=== PATIENT | female | born 1960 | race African-American/Black ===

== ENCOUNTER 2020-03-30 14:14 | Emergency (ER) | payer OTHER, SELFPAY ==
[2020-03-30 15:00] VITALS: BP 169/99; PULSE 129; RESP 16; TEMP 36.5; O2SAT 99
--- NOTE | 2020-03-30 15:02 | ED.FEMALEGU ---
HPI - Female Genitourinary General Chief complaint: Urogenital-Female Stated complaint: UTI Source: patient Mode of arrival: ambulatory Limitations: no limitations History of Present Illness HPI Narrative: Patient is a 59-year-old female who presents complaining of urinary frequency, urgency and dysuria x2 to 3 days. She reports taking Azo aajb-hmm-dfyived. She reports a history of UTIs in the past. She denies other complaints at this time. MD elicited complaint: dysuria Related Data Home Medications Medication Instructions Recorded Confirmed lisinopril-hydrochlorothiazide tablet 03/30/20 Allergies Allergy/AdvReac Type Severity Reaction Status Date / Time No Known Allergies Allergy Unknown Unverified 11/05/16 19:02 Review of Systems Review of Systems: Narrative: CONSTITUTIONAL: Denies fever, chills, or sweats. EYES: Denies visual changes, redness, or discharge. ENT: Denies rhinorrhea, congestion, sore throat, or otalgia. CARDIOVASCULAR: Denies chest pain, palpitations, or edema. RESPIRATORY: Denies cough or dyspnea. GASTROINTESTINAL: Denies abdominal pain, nausea, vomiting, or diarrhea. GENITOURINARY: Reports dysuria, frequency and urgency MUSCULOSKELETAL: Denies back pain, joint pain, or myalgia. NEUROLOGIC: Denies headache, numbness, dizziness, or weakness. PSYCHIATRIC: Denies anxiety or depression. PMFSH Past Medical History Medical History (Updated 03/30/20 @ 15:08 by GOPI Salas) Asthma HTN (hypertension) Postmenopausal Surgical History Surgical History (Updated 03/30/20 @ 15:04 by GOPI Salsa) No significant past surgical history Family History Family History (Updated 03/30/20 @ 15:04 by GOPI Salas) Other Hypertension Social History Social History (Updated 03/30/20 @ 15:05 by GOPI Salas) Smoking status: Never smoker Alcohol intake: never Substance use: never Exam Narrative: Exam Narrative: GENERAL: Well-appearing, well-nourished, and in no acute distress. HEAD: Normocephalic, atraumatic. EYES: No redness or drainage. ENT: Mucous membranes pink and moist. CHEST: No respiratory distress. EXTREMITIES: Normal range of motion. SKIN: Warm, dry, no rash. NEURO: No focal deficits. Alert and oriented x3. Gait steady. PSYCH: Normal affect. No signs of depression or anxiety. Course Vital Signs Vital signs: Vital Signs Temperature 36.5 C 03/30/20 15:00 Pulse Rate 129 H 03/30/20 15:00 Respiratory Rate 16 03/30/20 15:00 Blood Pressure 169/99 H 03/30/20 15:00 Pulse Oximetry 99 03/30/20 15:00 Temperature 36.5 C 03/30/20 15:00 Pulse Rate 129 H 03/30/20 15:00 Respiratory Rate 16 03/30/20 15:00 Blood Pressure 169/99 H 03/30/20 15:00 Pulse Oximetry 99 03/30/20 15:00 Reviewed. Patient has been instructed to follow-up with her PCP regarding her blood pressure. Patient is aware that her blood pressure and heart rate are elevated, reports white coat hypertension and anxiety MDM - Female Genitourinary MDM Narrative Medical decision making narrative: Patient is symptomatic and will be treated for UTI at this time. Discussed with patient the need for follow-up with PCP in 3 to 5 days. Patient agrees with plan of care. Patient is stable for discharge home with outpatient follow-up as discussed. Differential Diagnosis Differential diagnosis: Likely urinary tract infection, cystitis and other (Pyelonephritis) Critical Care Time Critical Care Time Critical Care Time: No Discharge Plan Discharge Clinical Impression: Urinary tract infection Patient Disposition: Home, Self-Care Condition: Stable Instructions: Antibiotic Form, Urinary Tract Infection in Women (DC) Additional Instructions: Take antibiotics as directed. Increase your fluid intake. Follow-up with your PCP in 3 to 5 days for urine recheck. Prescriptions: New cephalexin 250 mg capsule 250 mg PO Q6H 5 Days Qty: 20 RF: 0
== END 2020-03-30 15:22 | disposition home or self-care (01) ==
PROVIDERS: Emergency Provider Nurse Practitioner; PCP Family Medicine
DX: N39.0 Urinary tract infection, site not specified (principal); J45.909 Unspecified asthma, uncomplicated; I10 Essential (primary) hypertension
CPT/HCPCS: 81003; 87086; 99203; G0463

== ENCOUNTER 2021-07-16 18:10 | Emergency (ER) | payer OTHER, SELFPAY ==
[2021-07-16 18:15] VITALS: BP 167/100; PULSE 130; RESP 16; TEMP 36.7; O2SAT 100
--- NOTE | 2021-07-16 18:26 | ED.FEMALEGU ---
HPI - Female Genitourinary General Chief complaint: Urogenital-Female Stated complaint: BURNING URINATION Time Seen by Provider: 07/16/21 18:27 Source: patient, RN notes reviewed and old records reviewed Mode of arrival: ambulatory Limitations: no limitations History of Present Illness HPI Narrative: 61-year-old female who presents to [facility] with complaints of burning with urination and urinary frequency since yesterday morning. Patient reports no visible blood in urine denies any fever, chills or sweats, denies any nausea vomiting or diarrhea. Patient has not taken any AZO for her symptoms, reports that she took a urine test from [employer] that indicated positive for UTI. Patient denies any vaginal discharge or any itching denies any concern for STD's. MD elicited complaint: dysuria Related Data Home Medications Medication Instructions Recorded Confirmed lisinopril-hydrochlorothiazide tablet 03/30/20 Allergies Allergy/AdvReac Type Severity Reaction Status Date / Time No Known Allergies Allergy Unknown Unverified 11/05/16 19:02 Review of Systems Review of Systems: CONSTITUTIONAL: Denies fever, chills, or sweats. EYES: Denies visual changes, redness, or discharge. ENT: Denies rhinorrhea, congestion, sore throat, or otalgia. CARDIOVASCULAR: Denies chest pain, palpitations, or edema. RESPIRATORY: Denies cough or dyspnea. GASTROINTESTINAL: Denies abdominal pain, nausea, vomiting, or diarrhea. GENITOURINARY: Positive for dysuria and urinary frequency, denies any visible hematuria. SKIN: Denies rash or itching. MUSCULOSKELETAL: Denies back pain, joint pain, or myalgia. NEUROLOGIC: Denies headache, numbness, or weakness. PSYCHIATRIC: Denies anxiety or depression. All systems reviewed & are unremarkable except as noted in HPI and below [facility] Past Medical History Medical History Asthma HTN (hypertension) Postmenopausal Surgical History Surgical History No significant past surgical history Family History Family History Other Hypertension Social History Social History (Updated 07/16/21 @ 18:45 by Raquel Taylor NP) Smoking status: Never smoker Alcohol intake: never Substance use: never Living arrangements: with family Gender identity (if verbalized by the patient): Female Comments At time of signature, agree with nursing past medical, surgical, social and family history. There is no relevant family history pertinent to the presenting complaint Exam Narrative: GENERAL: Well-appearing, well-nourished, and in no acute distress. HEAD: Normocephalic, atraumatic. EYES: PERRLA and EOMI. ENT: Nares clear, no rhinorrhea or epistaxis. Mucous membranes moist.TM's normal with good light reflex, throat pink with no exudates or lesions or tonsil swelling NECK: Supple. no lymphadenopathy CHEST: Clear to auscultation. No respiratory distress.SAO2 100% on room air HEART: Regular rate and rhythm. No murmur heard. Normal peripheral pulses, no suprapubic tenderness, denies any CVA tenderness on examination ABDOMEN: Soft, nontender, nondistended, normal active bowel sounds. EXTREMITIES: Normal range of motion. No edema. SKIN: Warm, dry, no rash. NEURO: No focal deficits. Alert and oriented x3. Course Course Level of Care: Express Care Visit Vital Signs Vital signs: Vital Signs Temperature 36.7 C 07/16/21 18:15 Pulse Rate 130 H 07/16/21 18:15 Respiratory Rate 16 07/16/21 18:15 Blood Pressure 167/100 H 07/16/21 18:15 Pulse Oximetry 100 07/16/21 18:15 Temperature 36.7 C 07/16/21 18:15 Pulse Rate 130 H 07/16/21 18:15 Respiratory Rate 16 07/16/21 18:15 Blood Pressure 167/100 H 07/16/21 18:15 Pulse Oximetry 100 07/16/21 18:15 MDM - Female Genitourinary Differential Diagnosis Differential diagnosis: Likel
== END 2021-07-16 18:45 | disposition home or self-care (01) ==
PROVIDERS: Emergency Provider Registered Nurse; PCP Family Medicine
DX: N39.0 Urinary tract infection, site not specified (principal); J45.909 Unspecified asthma, uncomplicated; I10 Essential (primary) hypertension
CPT/HCPCS: 81003; 87086; 99213; G0463

== ENCOUNTER 2022-06-05 19:19 | Emergency (ER) | payer OTHER, SELFPAY ==
--- NOTE | 2022-06-05 19:22 | ED.FEMALEGU ---
HPI - Female Genitourinary General Chief complaint: Urogenital-Female Stated complaint: BURNING URINATION Time Seen by Provider: 06/05/22 19:22 Source: patient Mode of arrival: ambulatory Limitations: no limitations History of Present Illness HPI Narrative: Patient is a 8-year-old female who presents with 2 days of burning with urination. Denies any blood in urine, back pain, abdominal pain, fever, chills, nausea and vomiting. Patient also reports increased frequency of urination, but states she has been drinking lots of water. Denies any xtxt-woy-syhnids drug use. MD elicited complaint: dysuria Related Data Home Medications Medication Instructions Recorded Confirmed lisinopril 20 1 tablet PO DAILY 03/30/20 06/05/22 mg-hydrochlorothiazide 12.5 mg tablet Allergies Allergy/AdvReac Type Severity Reaction Status Date / Time No Known Allergies Allergy Unknown Verified 06/05/22 19:31 Review of Systems Review of Systems: All systems reviewed & are unremarkable except as noted in HPI and below Constitutional: Constitutional: Denies chills, Denies fever(s), Denies headache(s), Denies malaise and Denies weakness Eyes: Eyes: Denies change in vision, Denies eye discharge and Denies irritation ENT: Denies otalgia, Denies headache(s), Denies nasal congestion, Denies nasal discharge, Denies sinus pain and Denies sore throat Cardiovascular: Cardiovascular: Denies chest pain, Denies edema, Denies palpitations and Denies dyspnea Respiratory: Respiratory: Denies cough and Denies dyspnea Gastrointestinal: Gastrointestinal: Denies abdominal pain, Denies diarrhea, Denies nausea and Denies vomiting Genitourinary: Genitourinary: Denies hematuria, Denies urinary frequency, Reports dysuria and Denies flank pain Musculoskeletal: Musculoskeletal: Denies back pain and Denies numbness Integumentary/Breasts: Skin/Breast: Denies pruritus and Denies rash Neurologic: Denies headache(s), Denies numbness and Denies weakness Psychiatric: Psychiatric: Reports no additional psychiatric complaints Endocrine: Endocrine: Denies palpitations PMFSH Past Medical History Medical History Asthma HTN (hypertension) Postmenopausal Surgical History Surgical History No significant past surgical history Family History Family History Other Hypertension Social History Social History (Updated 07/16/21 @ 18:45 by Raquel Taylor NP) Smoking status: Never smoker Alcohol intake: never Substance use: never Living arrangements: with family Gender identity (if verbalized by the patient): Female Comments At time of signature, agree with nursing past medical, surgical, social and family history. There is no relevant family history pertinent to the presenting complaint. Exam Const: General: cooperative, healthy appearing, comfortable, no acute distress and well nourished Nutritional Appearance: well nourished Orientation/consciousness: patient oriented x3 HENMT: Head: normocephalic and atraumatic Ears: external ears normal Face/Nose/Sinus: Normal external nose present, Normal nares present and normal facial exam Face and sinus: normal facial exam Eyes: General: appearance normal, both eyes and all related structures Pupils: Equal, round and reactive pupils present EOM: EOMs intact bilaterally Neck: Neck: normal visual inspection, full ROM and supple Chest: Chest palpation & inspection: normal inspection of the chest Resp: Effort & Inspection: normal respiratory effort and able to speak in complete sentences Cardio: Rate: regular rate Rhythm: regular rhythm GI: Inspection: normal to inspection GI Palp: No abdominal tenderness and Yes Soft to palpation : General: Yes bladder normal to palpation and Yes no CVA tenderness Back/Spine/Pelvis: B
[2022-06-05 19:24] VITALS: BP 160/106; PULSE 126; RESP 16; TEMP 36.7; O2SAT 100
[2022-06-05 19:56] VITALS: BP 164/95; PULSE 102; RESP 18; O2SAT 98
== END 2022-06-05 19:56 | disposition home or self-care (01) ==
PROVIDERS: Emergency Provider Nurse Practitioner Family; PCP Family Medicine
DX: N39.0 Urinary tract infection, site not specified (principal); J45.909 Unspecified asthma, uncomplicated; I10 Essential (primary) hypertension
CPT/HCPCS: 81003; 87077; 87086; 87186; 99213; G0463

== ENCOUNTER 2022-11-19 00:44 | Emergency (ER) | payer OTHER, SELFPAY ==
--- NOTE | ~2022-11-19 | XR_ITS ---
EXAMINATION: XR foot LT min 3V DATE: 11/19/2022 02:23 INDICATION: Left foot pain and swelling. Fall. TECHNIQUE: 4 views of left foot were obtained. COMPARISON: None. FINDINGS: There is moderate hallux valgus. There is an oblique intra-articular fracture of base of fi fth metatarsal in near-anatomic alignment. There is mild osteoarthritis of first metatarsophalangeal joint. There is an enthesophyte at plantar aspect of calcaneal tuberosity. IMPRESSION: 1. Oblique intra-articular fracture of base of fifth metatarsal. 2. Moderate hallux valgus. 3. Mild osteoarthritis of first metatarsophalangeal joint. Reviewed, dictated and finalized at location A.
[2022-11-19 01:39] VITALS: BP 155/102; PULSE 116; RESP 16; TEMP 37.1; O2SAT 100
[2022-11-19 04:33] VITALS: BP 160/82; PULSE 78; RESP 15; O2SAT 100
[2022-11-19] MEDS: IBUPROFEN 400 MG TABLET 800 MG PO (05:41)
[2022-11-19] MEDS: ACETAMINOPHEN 500 MG TABLET 1000 MG PO (05:41)
--- NOTE | 2022-11-19 05:41 | PC.NURSE ---
patient dropped one Ibuprofen on the floor. Override in pyxis for a 400 mg Ibuprofen.
--- NOTE | 2022-11-19 06:22 | ED.GENADULT ---
HPI - General Adult General Chief complaint: Extremity Injury, Lower Stated complaint: left foot pain Time Seen by Provider: 11/19/22 04:31 History of Present Illness HPI narrative: This is a pleasant 8-year-old female presenting ED with a chief complaint of left foot pain. Patient was at the [employer] and she tripped and fell. She had pain and swelling to the outside of her left foot. No other injuries. Denies involvement of alcohol. Related Data Home Medications Medication Instructions Recorded Confirmed lisinopril 20 1 tablet PO DAILY 03/30/20 06/05/22 mg-hydrochlorothiazide 12.5 mg tablet Allergies Allergy/AdvReac Type Severity Reaction Status Date / Time No Known Allergies Allergy Unknown Verified 11/19/22 01:42 [facility] Past Medical History Medical History Asthma HTN (hypertension) Postmenopausal Surgical History Surgical History No significant past surgical history Family History Family History Other Hypertension Social History Social History (Updated 07/16/21 @ 18:45 by Raquel Taylor NP) Smoking status: Never smoker Alcohol intake: never Substance use: never Living arrangements: with family Gender identity (if verbalized by the patient): Female Exam Narrative: APPEARANCE: No apparent distress. Head: atraumatic. EYES: EOMI, NOSE: Atraumatic NECK: Trachea midline RESPIRATORY: No increased rate of breathing, CTAB CARDIOVASCULAR: RRR, ABDOMINAL: Non-distended MUSCULOSKELETAl: focal exam of left lower extremity reveals swelling of the foot and tenderness over the base of the 5th metatarsal. NEURO: Alert. Moving 4/4 extremities SKIN:: Warm, dry. Normal color PSYCHIATRIC: Normal affect Course Vital Signs Vital signs: Vital Signs Temperature 98.7 F 11/19/22 01:39 Pulse Rate 116 H 11/19/22 01:39 Respiratory Rate 16 11/19/22 01:39 Blood Pressure 155/102 H 11/19/22 01:39 Pulse Oximetry 100 11/19/22 01:39 Oxygen Delivery Room Air 11/19/22 01:39 Temperature 98.7 F 11/19/22 01:39 Pulse Rate 78 11/19/22 04:33 Respiratory Rate 15 11/19/22 04:33 Blood Pressure 160/82 H 11/19/22 04:33 Pulse Oximetry 100 11/19/22 04:33 Oxygen Delivery Room Air 11/19/22 01:39 Procedures Orthopedic Splinting/Casting Injury #1: Splinting/Casting Date: 11/19/22 Side: left Lower Extremity Injury Location: ankle Lower Extremity Immobilizer: posterior splint Splint: customized in ED OCL: posterior Pre-Procedure Neuro Vascular Exam: normal Post-Procedure Neuro Vascular Exam: normal Other Orthopedic Equipment: crutches Medical Decision Making MDM Narrative Medical decision making narrative: -Course: 8-year-old female presenting with foot pain after fall. X-ray showed a fracture at the base of the 5th metatarsal. Patient was placed in a posterior splint and discharged with orthopedic follow-up and crutches. 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 -RX Motrin Tylenol Robaxin Vital Signs Vital Signs: Vital Signs Temperature 98.7 F 11/19/22 01:39 Pulse Rate 116 H 11/19/22 01:39 Respiratory Rate 16 11/19/22 01:39 Blood Pressure 155/102 H 11/19/22 01:39 Pulse Oximetry 100 11/19/22 01:39 Oxygen Delivery Room Air 11/19/22 01:39 Temperature 98.7 F 11/19/22 01:39 Pulse
[2022-11-19 06:53] VITALS: BP 166/82; PULSE 78; RESP 15; O2SAT 100
== END 2022-11-19 06:54 | disposition home or self-care (01) ==
PROVIDERS: Emergency Provider Emergency Medicine; PCP Family Medicine
DX: S92.352A Displaced fracture of fifth metatarsal bone, left foot, initial encounter for closed fracture (principal); W19.XXXA Unspecified fall, initial encounter; I10 Essential (primary) hypertension
CPT/HCPCS: 29515; 73630; 99284; A9270

== ENCOUNTER 2024-04-23 16:05 | Emergency (ER) | payer OTHER, SELFPAY ==
[2024-04-23 16:13] VITALS: BP 136/97; PULSE 97; RESP 16; TEMP 36.8; O2SAT 98
[2024-04-23 16:21] LABS: EDUAAPPEAR Clear; EDUABILI Negative (Negative); EDUABLOOD Negative (Negative); EDUACOLOR1 Light/Pale; EDUAGLUCOSE Negative (Negative); EDUAKETONE Negative (Negative); EDUALEUKO Negative (Negative); EDUANITRATE Negative (Negative); EDUAPH 6.5; EDUAPROTEIN Negative (Negative); EDUAUROBILI 0.2
--- NOTE | 2024-04-23 16:33 | ED.FEMALEGU ---
HPI - Female Genitourinary General Chief complaint: Urogenital-Female Stated complaint: UTI Symptoms Time Seen by Provider: 04/23/24 16:17 Source: patient and RN notes reviewed Mode of arrival: ambulatory Limitations: no limitations History of Present Illness HPI Narrative: Patient presents today complaining of dysuria, urgency and frequency last night. Reports the frequency has resolved but the urgency and dysuria persists. Denies abdominal pain, fever. She has increased her water intake. No additional [id number] treatment prior to arrival. Related Data Home Medications ?Medication ?Instructions ?Recorded ?Confirmed ?Last Taken ?Type lisinopril 20 1 tablet PO DAILY 03/30/20 01/01/23 Unknown History mg-hydrochlorothiazide 12.5 mg tablet Allergies Allergy/AdvReac Type Severity Reaction Status Date / Time No Known Allergies Allergy Unknown Verified 04/23/24 16:13 Review of Systems Review of Systems: CONSTITUTIONAL: Denies body aches, fever, chills, or sweats. EYES: Denies visual changes, redness, or discharge. ENT: Denies rhinorrhea, congestion, sore throat, or otalgia. CARDIOVASCULAR: Denies chest pain, palpitations, or edema. RESPIRATORY: Denies cough or dyspnea. GASTROINTESTINAL: Denies abdominal pain, nausea, vomiting, or diarrhea. GENITOURINARY: + urgency, frequency, mild dysuria SKIN: Denies rash, itching, or wounds. MUSCULOSKELETAL: Denies back pain, joint pain, or myalgia. NEUROLOGIC: Denies headache, numbness, tingling, or weakness. PSYCH: Denies depression or anxiety. [facility] Past Medical History Medical History History of fracture of left ankle At Age 16 Postmenopausal Asthma HTN (hypertension) Surgical History Surgical History No significant past surgical history Family History Family History Mother Uterine cancer Sibling Lung cancer Other Hypertension Social History Social History Smoking status: Never smoker Alcohol intake: never Substance use: never Lack of Transportation: No Lack of Food: Never True Current Housing: I Have Housing Concerned About Future Housing: No Difficulty Paying Gas/Electric Bills: No Difficulty Paying for Meds: No Currently Unemployed: No Education: High School Diploma/GED Difficulty w/ Childcare or Family Care: No Living arrangements: with family Gender identity (if verbalized by the patient): Female Comments At time of signature, I have reviewed and agree with nursing past medical, surgical, social and family history unless otherwise noted. Please see nursing chart for further information. There is no relevant family history pertinent to the presenting complaint Exam Narrative: GENERAL: Well-appearing, well-nourished, and in no acute distress. HEAD: Normocephalic, atraumatic. EYES: EOMI. No redness or drainage. Conjunctivae normal. ENT: Mucous membranes pink and moist. NECK: Normal AROM. CHEST: No respiratory distress. Clear to auscultation. HEART: Regular rate and rhythm. No murmur appreciated. ABDOMEN: Soft, nontender, nondistended, normal active bowel sounds. EXTREMITIES: Normal range of motion. No edema. SKIN: Warm, dry, no rash. Capillary refill normal. Normal skin turgor. NEURO: No focal deficits. Alert and oriented x3. Gait steady. PSYCH: Normal affect. No signs of depression or anxiety. Course Course Level of Care: Express Care Visit Vital Signs Vital signs: Vital Signs Temperature 98.3 F 04/23/24 16:13 Pulse Rate 97 04/23/24 16:13 Respiratory Rate 16 04/23/24 16:13 Blood Pressure 136/97 H 04/23/24 16:13 Pulse Oximetry 98 04/23/24 16:13 Temperature 98.3 F 04/23/24 16:13 Pulse Rate 97 04/23/24 16:13 Respiratory Rate 16 04/23/24 16:13 Blood Pressure 136/97 H 04/23/24 16:13 Pulse Oximetry 98 04/23/24 16:13 Reviewed MDM - Female Genitourinary MDM Narrative Medical decision making narrative: Urinalysis is completely negative. Culture pending. Patient has been started on Pyridium for her discomfort while culture is pending. Differential Diagnosis Differential diagnosis: Likely urinary tract infection, vaginitis, cystitis and other (Interstitial cystitis) Lab Data Attestation: I reviewed the patient's lab results. Labs: Lab Results 04/23/24 Range/Units 16:19 POC Urine Color Light/pale POC Urine Clarity Clear POC Urine pH 6.5 POC Ur Specif [place] 1.010 POC Urine Protein Negative (Negative) POC Ur Glucose (UA) Negative (Negative) POC Urine Ketones Negative (Negative) POC Urine Blood Negative (Negative) POC Urine Nitrite Negative (Negative) POC Urine Bilirubin Negative (Negative) POC Urine Urobilinogen 0.2 POC U Leukocyte Esteras Negative (Negative) Critical Care Time Critical Care Time Critical Care Time: No Discharge Plan Discharge Clinical Impression: Dysuria Patient Disposition: Home, Self-Care Condition: Stable Instructions: Dysuria (ED) Additional Instructions: Your urinalysis is negative today. Please take the Pyridium as directed. If your urine culture comes back positive, you will be notified and appropriate antibiotics will be called in for you at time. Your blood pressure was elevated above 120/80 today at Urgent Care. This puts you above the threshold for follow up. Please schedule a followup visit with your personal physician as soon as possible, for further evaluation and treatment. Even blood pressure exceeding 120/80 may indicate pre-hypertension. Patient Language: German Prescriptions: New phenazopyridine [Pyridium] 200 mg tablet 200 mg PO TID PRN (Reason: pain) Qty: 10 0RF No Action lisinopril-hydrochlorothiazide 20-12.5 mg tablet 1 tablet PO DAILY hydrocodone-acetaminophen 5-325 mg tablet 1 tablet PO Q4-6H MDD 6 PRN (Reason: pain) Qty: 15 0RF ibuprofen 800 mg tablet 800 mg PO TID PRN (Reason: pain) 7 Days Qty: 21 0RF methocarbamol 750 mg tablet 1,500 mg PO TID Qty: 35 0RF Follow-up/Referrals: Sada,NEIL Gomez [Primary Care Provider] - Time of Disposition: 16:32
== END 2024-04-23 16:33 | disposition home or self-care (01) ==
PROVIDERS: Emergency Provider Nurse Practitioner; PCP Physician Assistant
DX: R30.0 Dysuria (principal); I10 Essential (primary) hypertension; J45.909 Unspecified asthma, uncomplicated
CPT/HCPCS: 81003; 87086; 99213; G0463

== ENCOUNTER 2025-02-06 14:37 | Emergency (ER) | payer OTHER, SELFPAY ==
--- NOTE | 2025-02-06 14:45 | ED.GENADULT ---
HPI - General Adult General Chief complaint: Urogenital-Female Stated complaint: Uti Symptoms Time Seen by Provider: 02/06/25 14:45 Source: patient Mode of arrival: ambulatory Limitations: no limitations History of Present Illness HPI narrative: 64-year-old female patient presents to the [facility] with complaints of urinary symptoms for the past 2 days. Patient states she has had frequency in urination and some discomfort. Denies any vaginal discharge denies any vaginal itching. Denies any odor to the urine or blood. Patient does arrive today with her blood pressure elevated and her heart rate elevated. Patient states she always gets nervous when she comes to the doctor and states her blood pressure is always elevated at the doctor. Patient states she does take lisinopril with hydrochlorothiazide. Related Data Home Medications ?Medication ?Instructions ?Recorded ?Confirmed ?Last Taken ?Type lisinopril 20 1 tablet PO DAILY 03/30/20 02/06/25 Unknown History mg-hydrochlorothiazide 12.5 mg tablet Allergies Allergy/AdvReac Type Severity Reaction Status Date / Time No Known Allergies Allergy Unknown Verified 02/06/25 14:54 Review of Systems Review of Systems: CONSTITUTIONAL: Denies fever, chills, or sweats. EYES: Denies visual changes, redness, or discharge. ENT: Denies rhinorrhea, congestion, sore throat, or otalgia. CARDIOVASCULAR: Denies chest pain, palpitations, or edema. RESPIRATORY: Denies cough or dyspnea. GASTROINTESTINAL: Denies abdominal pain, nausea, vomiting, or diarrhea. GENITOURINARY: Positive dysuria denies hematuria. SKIN: Denies rash or itching. MUSCULOSKELETAL: Denies back pain, joint pain, or myalgia. NEUROLOGIC: Denies headache, numbness, or weakness. PSYCHIATRIC: Denies anxiety or depression. [facility] Past Medical History Medical History History of fracture of left ankle At Age 16 Postmenopausal Asthma HTN (hypertension) Surgical History Surgical History No significant past surgical history Family History Family History Mother Uterine cancer Sibling Lung cancer Other Hypertension Social History Social History Alcohol intake: never Substance use: never Lack of Transportation: No Lack of Food: Never True Current Housing: I Have Housing Concerned About Future Housing: No Difficulty Paying Gas/Electric Bills: No Difficulty Paying for Meds: No Currently Unemployed: No Education: High School Diploma/GED Difficulty w/ Childcare or Family Care: No Living arrangements: with family Gender identity (if verbalized by the patient): Female Comments At the time of my signature I agree with nursing past medical history, surgical, social, and family history. There is no relevant family history pertinent to the presenting complaint. Exam Narrative: GENERAL: Well-appearing, well-nourished, and in no acute distress. HEAD: Normocephalic, atraumatic. EYES: PERRLA and EOMI. ENT: Nares clear, no rhinorrhea or epistaxis. Mucous membranes moist. NECK: Supple. No lymphadenopathy CHEST: Clear to auscultation. No respiratory distress. HEART: tachycardia rate and rhythm. No murmur heard. Normal peripheral pulses. hypertension noted ABDOMEN: Soft, nontender, nondistended, normal active bowel sounds. no CVA tenderness on percussion EXTREMITIES: Normal range of motion. No edema. SKIN: Warm, dry, no rash. NEURO: No focal deficits. Alert and oriented x3. Course Course Level of Care: Express Care Visit Vital Signs Vital signs: Vital Signs Temperature 36.7 C 02/06/25 14:47 Pulse Rate 127 H 02/06/25 14:47 Respiratory Rate 16 02/06/25 14:47 Blood Pressure 160/102 H 02/06/25 14:47 Pulse Oximetry 98 02/06/25 14:47 Temperature 36.7 C 02/06/25 14:47 Pulse Rate 127 H 02/06/25 14:47 Respiratory Rate 16 02/06/25 14:47 Blood Pressure 160/102 H 02/06/25 14:47 Pulse Oximetry 98 02/06/25 14:47 vital signs reviewed. Medical Decision Making MDM Narrative Medical decision making narrative: after looking at the patient's last couple of urine dips and urine cultures does appear that she has not had a positive culture with a negative urine dip last couple of times she has been here. Discussed with patient I am concerned that her heart rate is very high as well as her blood pressure and discussed with her about the relationship between the heart and the kidneys. Discussed with patient that based on her vitals today as well as her EKG I do recommend that she go to the ER and get some blood testing done to further evaluate this. Patient has opted not to go to the ER today and states that she will call her doctor tomorrow to follow-up. Discussed with patient that we will send her urine off to lab for culture and if the culture comes back positive we have put her on antibiotics at that time. Discussed with patient that she may have an underlying risk for some sort of kidney disease for possible myocardial infarction if the heart rate and blood pressure continued to stay high. Discussed with patient that if she wishes not to go to the ER we will sign her out AMA. She is aware the plan of care and is in agreement with this. Copy of her EKG was provided to the patient today upon leaving. Differential Diagnosis Differential Diagnosis: Differential diagnosis: Uncomplicated lower UTI, uncomplicated UTI, pyelonephritis Vital Signs Vital Signs: Vital Signs Temperature 36.7 C 02/06/25 14:47 Pulse Rate 127 H 02/06/25 14:47 Respiratory Rate 16 02/06/25 14:47 Blood Pressure 160/102 H 02/06/25 14:47 Pulse Oximetry 98 02/06/25 14:47 Temperature 36.7 C 02/06/25 14:47 Pulse Rate 127 H 02/06/25 14:47 Respiratory Rate 16 02/06/25 14:47 Blood Pressure 160/102 H 02/06/25 14:47 Pulse Oximetry 98 02/06/25 14:47 Lab Data Labs: Lab Results 02/06/25 02/06/25 Range/Units 14:56 15:20 POC Capillary Glucose 103 (65-105) mg/dl POC Urine Color Yellow POC Urine Clarity Clear POC Urine pH 7.0 POC Ur Specif [place] 1.015 POC Urine Protein Negative (Negative) POC Ur Glucose (UA) Negative (Negative) POC Urine Ketones Negative (Negative) POC Urine Blood Negative (Negative) POC Urine Nitrite Negative (Negative) POC Urine Bilirubin Negative (Negative) POC Urine Urobilinogen 0.2 POC U Leukocyte Esteras Negative (Negative) Critical Care Time Critical Care Time Critical Care Time: No Discharge Plan Discharge Clinical Impression: Hypertension, Tachycardia, Dysuria Patient Disposition: Left Against Medical Advice Condition: Stable Instructions: Antibiotic Form Patient Language: Moldovan Prescriptions: No Action lisinopril-hydrochlorothiazide 20-12.5 mg tablet 1 tablet PO DAILY phenazopyridine [Pyridium] 200 mg tablet 200 mg PO TID PRN (Reason: pain) Qty: 10 0RF hydrocodone-acetaminophen 5-325 mg tablet 1 tablet PO Q4-6H MDD 6 PRN (Reason: pain) Qty: 15 0RF ibuprofen 800 mg tablet 800 mg PO TID PRN (Reason: pain) 7 Days Qty: 21 0RF methocarbamol 750 mg tablet 1,500 mg PO TID Qty: 35 0RF Follow-up/Referrals: Preet,MD Antonio [Primary Care Provider, Unknown] Yuan Keating MD [Physician, Urology] Time of Disposition: 15:46
[2025-02-06 14:47] VITALS: BP 160/102; PULSE 127; RESP 16; TEMP 36.7; O2SAT 98
[2025-02-06 14:58] LABS: EDUAAPPEAR Clear; EDUABILI Negative (Negative); EDUABLOOD Negative (Negative); EDUACOLOR1 Yellow; EDUAGLUCOSE Negative (Negative); EDUAKETONE Negative (Negative); EDUALEUKO Negative (Negative); EDUANITRATE Negative (Negative); EDUAPH 7.0; EDUAPROTEIN Negative (Negative); EDUASPGRAVITY 1.015; EDUAUROBILI 0.2
--- NOTE | 2025-02-06 15:17 | ECG_ITS ---
Test Date: 2025-02-06 15:29:43 Measurements Intervals [place] Rate: 134 P: 29 SD: 145 QRS: -17 QRSD: 101 T: 16 QT: 331 QTc: 496 Interpretive Statements SINUS TACHYCARDIA LOW QRS VOLTAGE IN PRECORDIAL LEADS [QRS DEFLECTION < 1.0 mV IN CHEST LEADS] INFERIOR MYOCARDIAL INFARCTION [40+ ms Q WAVE AND/OR ST/T ABNORMALITY IN II/aVF], PROBABLY OLD ANTEROSEPTAL MYOCARDIAL INFARCTION [40+ ms Q WAVE IN V1-V4], PROBABLY OLD No previous ECG available for comparison Electronically Signed On 02-07-2025 18:26:17 GEODETIC ADVISOR by Lindy Aguilar M.D.
== END 2025-02-06 15:32 | disposition left against medical advice (07) ==
PROVIDERS: Emergency Provider Nurse Practitioner Family; PCP Family Medicine
DX: I10 Essential (primary) hypertension (principal); R00.0 Tachycardia, unspecified; R30.0 Dysuria; J45.909 Unspecified asthma, uncomplicated
CPT/HCPCS: 81003; 82948; 87086; 93005; 99213; G0463